=== PATIENT | male | born 1990 | race Caucasian/White ===

== ENCOUNTER 2021-01-02 13:16 | Outpatient (CLI) | payer OTHER, SELFPAY | END 2021-01-02 13:17 | disposition home or self-care (01) | LOC: ANHCOVIDVC 13:16 | PROVIDERS: PCP Internal Medicine | DX: Z23 Encounter for immunization (principal) | CPT/HCPCS: 0001A; 91300 ==

== ENCOUNTER 2021-01-23 13:14 | Outpatient (CLI) | payer OTHER, SELFPAY | END 2021-01-23 13:15 | disposition home or self-care (01) | LOC: ANHCOVIDVC 13:14 | PROVIDERS: PCP Internal Medicine | DX: Z23 Encounter for immunization (principal) | CPT/HCPCS: 0002A; 91300 ==

== ENCOUNTER 2021-09-01 08:22 | Emergency (ER) | payer OTHER, SELFPAY ==
[2021-09-01 08:32] VITALS: BP 121/75; PULSE 61; RESP 16; TEMP 36.8; O2SAT 99
--- NOTE | 2021-09-01 09:31 | ED.BACK ---
HPI - Back Pain/Injury General Chief Complaint: Back Pain/Injury Stated Complaint: lower back pain Time Seen by Provider: 09/01/21 09:14 Source: patient and RN notes reviewed Mode of arrival: ambulatory Limitations: no limitations History of Present Illness HPI Narrative: Patient presents today complaining of 3-day history of low back pain. Denies any known injury or trauma. States he was brushing his teeth while bending over. When he stood up he felt a twinge of pain in his back. Occasionally when walking, he feels radiation of the pain down his right leg. Denies numbness or tingling. Denies any loss of bowel or bladder control. Currently rates his pain 9/10 and describes the pain as constant throbbing. Pain increases when he sits or walks and decreases slightly when he lays down. He has been using ibuprofen and Biofreeze patches which help very slightly. Denies any chronic back pain or back surgeries. MD elicited complaint: back pain Related Data Allergies Allergy/AdvReac Type Severity Reaction Status Date / Time No Known Allergies Allergy Verified 09/01/21 09:09 Review of Systems Review of Systems: CONSTITUTIONAL: Denies body aches, fever, chills, or sweats. EYES: Denies visual changes, redness, or discharge. ENT: Denies rhinorrhea, congestion, sore throat, or otalgia. CARDIOVASCULAR: Denies chest pain, palpitations, or edema. RESPIRATORY: Denies cough or dyspnea. GASTROINTESTINAL: Denies abdominal pain, nausea, vomiting, or diarrhea. GENITOURINARY: Denies dysuria or hematuria. SKIN: Denies rash, itching, or wounds. MUSCULOSKELETAL: Denies joint pain, or myalgia.+ Back pain NEUROLOGIC: Denies headache, numbness, tingling, or weakness. PSYCH: Denies depression or anxiety. PMFSH Comments At time of signature, I have reviewed and agree with nursing past medical, surgical, social and family history unless otherwise noted. Please see nursing chart for further information. There is no relevant family history pertinent to the presenting complaint Exam Narrative: GENERAL: Well-appearing, well-nourished, and in no acute distress. HEAD: Normocephalic, atraumatic. EYES: EOMI. No redness or drainage. Conjunctivae normal. ENT: Mucous membranes pink and moist. NECK: Normal AROM. CHEST: No respiratory distress. MUSCULOSKELETAL: No bony tenderness of the spine. Palpable muscle spasms in the bilateral lower lumbar paraspinal muscles, right greater than left. Distal sensation intact bilaterally. Saddle sensation intact. Capillary refill normal. Posterior tibial pulses normal. Dorsiflexion and plantarflexion equal and strong against resistance. EXTREMITIES: Normal range of motion. No edema. SKIN: Warm, dry, no rash. Capillary refill normal. Normal skin turgor. NEURO: No focal deficits. Alert and oriented x3. Gait steady. PSYCH: Normal affect. No signs of depression or anxiety. Course Vital Signs Vital signs: Vital Signs Temperature 98.2 F 09/01/21 08:32 Pulse Rate 61 09/01/21 08:32 Respiratory Rate 16 09/01/21 08:32 Blood Pressure 121/75 09/01/21 08:32 Pulse Oximetry 99 09/01/21 08:32 Temperature 98.2 F 09/01/21 08:32 Pulse Rate 61 09/01/21 08:32 Respiratory Rate 16 09/01/21 08:32 Blood Pressure 121/75 09/01/21 08:32 Pulse Oximetry 99 09/01/21 08:32 Reviewed. Pt has been instructed to follow up with his PCP regarding his elevated blood pressure today. MDM - Back Pain/Injury Differential Diagnosis Differential diagnosis: Likely lumbar radiculopathy, sciatica and strain of lumbar region Critical Care Time Critical Care Time Critical Care Time: No Discharge Plan Discharge Clinical Impression: Spasm of muscle of lower back Patient Disposition: Home, Self-Care Condition: Stable Instructions: Low Back Strain (ED) Additional Instructions: Please take all medications as prescribed. Do not drive within 8 hours of taking the Flexeril as it can make you drowsy
== END 2021-09-01 09:50 | disposition home or self-care (01) ==
PROVIDERS: Emergency Provider Nurse Practitioner
DX: M62.830 Muscle spasm of back (principal)
CPT/HCPCS: 99213; G0463

== ENCOUNTER 2024-06-03 10:23 | Emergency (ER) | payer OTHER, SELFPAY ==
[2024-06-03 10:38] VITALS: BP 128/74; PULSE 72; RESP 18; TEMP 36.6; O2SAT 100
--- NOTE | 2024-06-03 10:46 | ED.LOWEXIN ---
HPI - Extremity Injury (Lower) General Stated Complaint: right knee/left big toe blister Time Seen by Provider: 06/03/24 10:46 Source: patient Mode of arrival: ambulatory Limitations: no limitations History of Present Illness HPI Narrative: 33 yo M Presents with complaint of blister to right knee and left great toe for several days. Patient noticed them after doing yd work. Reports blister to left great toe is now very sore with redness. Also has redness and drainage to right knee. Seems to not be healing . All systems reviewed and negative except as noted above. Related Data Allergies Allergy/AdvReac Type Severity Reaction Status Date / Time No Known Allergies Allergy Verified 06/03/24 10:39 Review of Systems Review of Systems: CONSTITUTIONAL: Denies fever, chills, or sweats. EYES: Denies visual changes, redness, or discharge. ENT: Denies rhinorrhea, congestion, sore throat, or otalgia. CARDIOVASCULAR: Denies chest pain, palpitations, or edema. RESPIRATORY: Denies cough or dyspnea. GASTROINTESTINAL: Denies abdominal pain, nausea, vomiting, or diarrhea. GENITOURINARY: Denies dysuria or hematuria. SKIN: Reports redness, pain, drainage from blisters left great toe and right knee. MUSCULOSKELETAL: Denies back pain, joint pain, or myalgia. NEUROLOGIC: Denies headache, numbness, or weakness. PSYCHIATRIC: Denies anxiety or depression. All other systems reviewed are negative, except as documented in HPI. PMFSH Comments At time of signature, agree with nursing past medical, surgical, social and family history. There is no relevant family history pertinent to the presenting complaint. Exam Narrative: GENERAL: This is a well-nourished, well-developed patient, in no apparent distress. HEAD: normocephalic, atraumatic. EYES: PERRL. Sclera clear/white. Vision is grossly intact. EARS: External ears normal NOSE: External nose normal NECK: Neck supple, non-tender without lymphadenopathy, masses or thyromegaly. CARDIOVASCULAR: Regular rate and rhythm without murmurs, gallops, or rubs. RESPIRATORY: Clear to auscultation. Breath sounds equal bilaterally. No wheezes, rales, or rhonchi. SKIN: warm, Dry, intact with no suspicious lesions or rash, good texture and turgor. erythematous blister anterior aspect right knee with clear drainage, yellow crusting, tenderness on palpation. Erythematous blister to plantar aspect left great toe with swelling and tenderness on palpation. NEURO: awake, alert, and oriented to person, place and time. There were no obvious focal neurologic abnormalities. EXTREMITIES: No joint tenderness, effusion, or edema noted. Course Course Level of Care: Express Care Visit Vital Signs Vital signs: Vital Signs Temperature 36.6 C 06/03/24 10:38 Pulse Rate 72 06/03/24 10:38 Respiratory Rate 18 06/03/24 10:38 Blood Pressure 128/74 06/03/24 10:38 Pulse Oximetry 100 06/03/24 10:38 Oxygen Delivery Room Air 06/03/24 10:38 Temperature 36.6 C 06/03/24 10:38 Pulse Rate 72 06/03/24 10:38 Respiratory Rate 18 06/03/24 10:38 Blood Pressure 128/74 06/03/24 10:38 Pulse Oximetry 100 06/03/24 10:38 Oxygen Delivery Room Air 06/03/24 10:38 Review MDM - Extremity Injury (Lower) MDM Narrative Medical decision making narrative: Patient is aware of diagnosis, understands and agrees to treatment plan. Anticipatory guidance given. Patient agrees to follow-up as directed and is aware of reasons to seek care at the emergency department. Portions of this record may have been created with voice recognition software Discharge Plan Discharge Clinical Impression: Infected blister of right knee, Infected blister of great toe of left foot Patient Disposition: Home, Self-Care Condition: Stable Instructions: Antibiotic Form, Blister (ED) Additional Instructions: take antibiotic as prescribed. Clean affected areas twice a day with soap and milli
== END 2024-06-03 11:40 | disposition home or self-care (01) ==
PROVIDERS: Emergency Provider Nurse Practitioner Family
DX: S80.221A Blister (nonthermal), right knee, initial encounter (principal); S90.422A Blister (nonthermal), left great toe, initial encounter; L08.9 Local infection of the skin and subcutaneous tissue, unspecified; X58.XXXA Exposure to other specified factors, initial encounter
CPT/HCPCS: 99213; G0463